=== PATIENT | female | born 1955 | race Caucasian/White ===

== ENCOUNTER → 2016-04-27 | Outpatient (CLI) | payer BC ==
[~2016-04-27] MED LIST: ASPI325T32 PO; BUPR100T6 PO; HYDR-906 PO; LEVO125T79 PO; LISI10TA2 PO; PANT40TA4 PO; ULT50 PO
--- NOTE | 2016-04-28 08:42 | HKNOTE ---
DATE OF SERVICE: 04/27/2016 INTERVAL HISTORY: The patient presents today for an evaluation of her right hip. She has had some itching and sloughing of the skin around the incision, which I think is secondary to the adhesive from the Steri-Strips and Tegaderm dressings. She denies any pain at the right hip, denies any fevers, chills, denies any erythema. No pus or drainage. She is here today just to reevaluate the wound. PHYSICAL EXAMINATION: On exam today she is alert and oriented x4, in no acute distress. There is some mild skin flaking around the incision. Her incision is clean, dry, intact and well healed. There is no erythema. No warmth. Minimal soft tissue swelling. There is some dermatitis. Compartments are soft. Neurovascular status intact distally. IMAGING: None. 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 PLAN: 1. Lidex to apply topically to affected area. 2. Follow up on May 11 as planned. We will get an x-ray of the surgical hip at that time Dictated By: RAFAELA PATTERSON for ROBBI DU/MARISA Conf#: [id number] DID#: [id number] MTDD
== END | disposition home or self-care (01) ==
LOC: HKI 14:25
PROVIDERS: ATTEND Orthopaedic Surgery
DX: L23.1 Allergic contact dermatitis due to adhesives (principal); L29.9 Pruritus, unspecified; Z96.641 Presence of right artificial hip joint
CPT/HCPCS: G0463

== ENCOUNTER → 2016-05-11 | Outpatient (CLI) | payer BC ==
[~2016-05-11] MED LIST changes: +LEVO125T PO; -LEVO125T79 PO; +TRAM50TA2 PO; -ULT50 PO
--- NOTE | 2016-05-11 17:55 | RADRPT ---
PROCEDURE: XR Right hip and pelvis. CLINICAL INDICATION: Right hip pain. Pelvic pain. Postop. TECHNIQUE: Two views. Frontal pelvis and lateral right hip. COMPARISON: 04/10/2016. FINDINGS: There is no fracture or dislocation. The soft tissues are normal. There is a right hip total arthroplasty which appears satisfactory. There is also a left hip total arthroplasty which appears satisfactory. There is no lytic or blastic lesion. The upper pelvis is not included on the image. There is a surgical clip in the right side of the pe lvis. Previously noted right lateral skin bebo have been removed. IMPRESSION: 1. Satisfactory postoperative appearance of both hips. 2. Right lateral skin bebo have been removed. RPTAT: QQ .Albaro Flores MD, MD Date Time Electronically viewed and signed by .Albaro Flores MD, on 05/11/2016 17:55 .R/
== END | disposition home or self-care (01) ==
LOC: HKI 15:33
PROVIDERS: ATTEND Orthopaedic Surgery
DX: Z47.1 Aftercare following joint replacement surgery (principal); Z16.11 Resistance to penicillins; Z96.641 Presence of right artificial hip joint
CPT/HCPCS: 73502; G0463

== ENCOUNTER → 2016-07-24 | Outpatient (CLI) | payer BC ==
--- NOTE | 2016-07-25 10:40 | RADRPT ---
PROCEDURE: XR pelvis. CLINICAL INDICATION: Hip pain TECHNIQUE: AP view available for review. COMPARISON: 05/11/2016 FINDINGS: There are bilateral total hip replacements. There is normal mineralization, architecture and alignment. There is no evidence of loosening of th e prosthesis. There is no evidence of hardware failure. No fractures, dislocation or osseous lesions are identified. The joints are unremarkable. There are normal soft tissues. IMPRESSION: Bilateral total hip replacements. Otherwise unremarkable examination. RPTAT: HGDB .Rusty Stephenson MD, Date Time Electronically viewed and signed by .Rusty Stephenson MD, on 07/25/2016 10:40 .B/
--- NOTE | 2016-07-25 10:40 | RADRPT ---
PROCEDURE: XR right hip. CLINICAL INDICATION: Hip pain TECHNIQUE: AP and lateral views are available for review. COMPARISON: 05/11/2016 FINDINGS: There is a right total hip replacement. There is no evidence of loosening of the prosthesis. There i s no evidence of hardware failure. There is normal mineralization, architecture and alignment. No f ractures are identified. No osseous lesions are present. The joints are unremarkable. The soft ti ssues are unremarkable. IMPRESSION: Right total hip replacement Otherwise an unremarkable examination RPTAT: HGDB .Rusty Stephenson MD, MD Date Time Electronically viewed and signed by .Rusty Stephenson MD, on 07/25/2016 10:39 .B/
== END | disposition home or self-care (01) ==
LOC: HKI 15:12
PROVIDERS: ATTEND Orthopaedic Surgery
DX: Z47.89 Encounter for other orthopedic aftercare (principal); Z96.643 Presence of artificial hip joint, bilateral
CPT/HCPCS: 72170; 73502; G0463

== ENCOUNTER 2018-03-22 10:28 | Emergency (ER) | END 2018-03-22 14:10 | disposition home or self-care (01) ==